=== PATIENT | female | born 1990 | race Native Hawaiian/Other Pacific Islander ===

== ENCOUNTER 2017-01-03 19:03 | Emergency (ER) | payer OTHER ==
[~2017-01-03] VITALS: Ht 162.6 cm; Wt 102.1 kg
[2017-01-03 20:55] VITALS: BP 162/72; TEMP 98
== END 2017-01-03 21:10 | disposition home or self-care (01) ==
LOC: ED 19:03
DX: R51 Headache (principal); J32.8 Other chronic sinusitis; F41.0 Panic disorder [episodic paroxysmal anxiety]; R06.4 Hyperventilation
CPT/HCPCS: 99282; J1885

== ENCOUNTER 2017-01-05 11:55 | Outpatient (CLI) | payer OTHER ==
[2017-01-05 12:33] LABS: POTASSIUM 4.1 mmol/L (3.6-5.2); SODIUM 140 mmol/L (136-145)
[2017-01-05 12:46] LABS: PLATELET COUNT 258 K/uL (152-353)
== END 2017-01-05 19:16 | disposition home or self-care (01) ==
LOC: LABW 11:55
PROVIDERS: Specialist
DX: G43.009 Migraine without aura, not intractable, without status migrainosus (principal)
CPT/HCPCS: 36415; 80053; 85027; 85651; 86039; 86140

== ENCOUNTER 2017-06-12 17:19 | Emergency (ER) | payer OTHER ==
[~2017-06-12] VITALS: Ht 160 cm; Wt 104.3 kg
[2017-06-12 18:02] VITALS: BP 132/89; TEMP 98.2
== END 2017-06-12 18:06 | disposition home or self-care (01) ==
LOC: ED 17:19
DX: R10.84 Generalized abdominal pain (principal); Z33.1 Pregnant state, incidental
CPT/HCPCS: 99282